=== PATIENT | female | born 1995 | race Caucasian/White ===

== ENCOUNTER 2022-11-27 15:26 | Emergency (ER) | payer OTHER ==
[~2022-11-27] VITALS: Ht 165.1 cm; Wt 84.4 kg
[2022-11-27] MEDS ORDERED: NAPROXEN500 MG PO (20:41)
== END 2022-11-27 20:56 | disposition home or self-care (01) ==
LOC: ER 15:26
DX: O03.9 Complete or unspecified spontaneous abortion without complication (principal)